=== PATIENT | female | born 1955 | race Caucasian/White ===

== ENCOUNTER 2019-12-20 13:53 | Outpatient (CLI) | payer MEDICARE, MEDICAID, SELFPAY ==
[2019-12-20 14:10] VITALS: BP 140/80; PULSE 109; RESP 18; TEMP 36.7; O2SAT 92
[2019-12-20] MEDS: diphenhydrAMINE 50 mg/mL SDV 1mL 25 MG IVP (15:16)
[2019-12-20 17:00] VITALS: BP 156/87; PULSE 102; TEMP 36.6; O2SAT 91
== END 2019-12-20 13:54 | disposition home or self-care (01) ==
LOC: RHEOACUTE 13:54
PROVIDERS: Family Provider Family Medicine; PCP Family Medicine; Visit Provider Internal Medicine Rheumatology
DX: L40.50 Arthropathic psoriasis, unspecified (principal); Z79.899 Other long term (current) drug therapy
CPT/HCPCS: 36415; 82565; 84460; 86140; 96365; 96366; 96374; 96375; J1200; J1745; J2930; J7050

== ENCOUNTER → 2019-12-20 14:18 | Outpatient (BNVA) | payer MEDICARE, MEDICAID, SELFPAY | PROVIDERS: Family Provider Family Medicine; PCP Family Medicine; Visit Provider Internal Medicine Rheumatology | DX: L40.50 Arthropathic psoriasis, unspecified (principal); E66.01 Morbid (severe) obesity due to excess calories | CPT/HCPCS: 85025 ==

== ENCOUNTER 2020-01-31 09:41 | Outpatient (CLI) | payer MEDICARE, MEDICAID, SELFPAY ==
--- NOTE | 2020-01-31 09:47 | CT_ITS ---
WS: [id number] CT CHEST WITHOUT INTRAVENOUS CONTRAST HISTORY: COUGH TECHNIQUE: Contiguous 5 mm axial imaging performed on the thorax. Coronal and sagittal reformats are submitted. All CT scans at [facility] use at least one of these dose optimization techniq ues: automated exposure control; mA and/or kV adjustment per patient size (includes targeted exams wh ere dose is matched to clinical indication); or iterative reconstruction. CONTRAST: None DLP: 1026.53 mGycm COMPARISON: 09/06/2015 Lungs and central airway: Mild pulmonary hyperexpansion. There are 2 noncalcified RIGHT pulmonary nod ules which are stable over multiple prior years. These are best seen on image 23 of series 3. The lar gest measures 6.4 mm in the inferior segment RIGHT upper lobe. Mild dependent changes at the RIGHT josé ng base. Pleura: Normal. No pleural effusion. Heart and pericardium: Normal size heart. Scattered calcifications in the [place] coronary arteries. Mediastinum and jose: No mediastinum or hilar adenopathy. Vessels: Mild atherosclerosis aorta. Chest wall and lower neck: No soft tissue masses. Upper abdomen: Hepatic steatosis and hepatomegaly. Cholelithiasis without acute cholecystitis. Osseous structures: No destructive process. CT/CT chest wo con [id number] IMPRESSION: 1. Long-term stability of subcentimeter, noncalcified pulmonary nodules in the RIGHT lung. 2. No adenopathy or pneumonia. 3. Cholelithiasis. 4. Marked hepatic steatosis. 5. Coronary artery calcifications and mild atherosclerosis aorta.
== END 2020-01-31 09:42 | disposition home or self-care (01) ==
LOC: RADWPI 09:46
PROVIDERS: Family Provider Family Medicine; PCP Family Medicine; Visit Provider Specialist
DX: K80.20 Calculus of gallbladder without cholecystitis without obstruction (principal); K76.0 Fatty (change of) liver, not elsewhere classified; I25.10 Atherosclerotic heart disease of native coronary artery without angina pectoris; I70.0 Atherosclerosis of aorta; R91.8 Other nonspecific abnormal finding of lung field; R05 Cough
CPT/HCPCS: 71250

== ENCOUNTER → 2020-05-09 09:40 | Outpatient (BNVA) | payer MEDICARE, MEDICAID, SELFPAY | PROVIDERS: Family Provider Family Medicine; PCP Family Medicine; Visit Provider Internal Medicine Rheumatology | DX: L40.50 Arthropathic psoriasis, unspecified (principal); Z79.899 Other long term (current) drug therapy; M17.0 Bilateral primary osteoarthritis of knee; E66.01 Morbid (severe) obesity due to excess calories; Z68.43 Body mass index [BMI] 50.0-59.9, adult | CPT/HCPCS: 36415; 80076; 82565; 85025; 85651; 86140; 99214 ==

== ENCOUNTER 2020-06-06 09:25 | Outpatient (CLI) | payer MEDICARE, MEDICAID, SELFPAY ==
--- NOTE | 2020-06-06 09:34 | XR_ITS ---
WS: [id number] RIGHT KNEE: 3 VIEW(S) TECHNIQUE: AP, oblique(s) and lateral. HISTORY: psoriatic arthritis COMPARISON: 09/20/2014 No fracture or dislocation. Mild narrowing medial compartment. Small osteophytes along the joint lines. No joint effusion. No joint effusion. No soft tissue abnormality. XR/XR knee RT 3V* [id number] IMPRESSION: Mild tricompartment osteoarthritis. Similar to 09/20/2014.
--- NOTE | 2020-06-06 09:34 | XR_ITS ---
WS: [id number] LEFT KNEE: 3 VIEW(S) TECHNIQUE: AP, oblique(s) and lateral. HISTORY: psoriatic arthritis COMPARISON: 09/20/2014 No fracture or dislocation. Mild narrowing medial compartment. Small osteophytes along the joint lines of all 3 compartments. No definite joint effusion. No joint effusion. No soft tissue abnormality. XR/XR knee LT 3V* [id number] IMPRESSION: Mild osteoarthritis. Mild progression since 2013.
--- NOTE | 2020-06-06 09:34 | XR_ITS ---
WS: [id number] RIGHT HAND: 3 VIEW(S) TECHNIQUE: PA, oblique and lateral. HISTORY: psoriatic arthritis COMPARISON: None available. No acute fracture or dislocation. Significant narrowing of the interphalangeal joints, most significant involving the second through fi fth DIP joints and to a lesser extent the proximal IP joints. Loss of cartilage and small erosions al vincent the joint lines. No subluxation. No significant periostitis. Minimal periostitis suspected along the medial aspect second proximal phalanx. XR/XR hand RT min 3V* [id number] IMPRESSION: 1. Changes in the interphalangeal joints can be seen with psoriatic arthritis. Mild progression since 08/25/2012. 2. No fractures.
--- NOTE | 2020-06-06 09:34 | XR_ITS ---
WS: [id number] LEFT HAND: 3 VIEW(S) TECHNIQUE: PA, oblique and lateral. HISTORY: psoriatic arthritis COMPARISON: 08/06/2016 No acute fracture or dislocation. Interphalangeal joint space narrowing most significant involving the DIP joints. Loss of joint space with hypertrophic bone formation and small erosions. No significant change at the third DIP joint. No definite periostitis. Minimal soft tissue edema. XR/XR hand LT min 3V* [id number] IMPRESSION: Erosive changes at the IP joints without periostitis. These findings can be see n with psoriatic arthritis.
--- NOTE | 2020-06-06 09:34 | XR_ITS ---
WS: [id number] CHEST 2 VIEWS HISTORY: psoriatic arthritis COMPARISON: None available. Lungs: Mildly hyperexpanded lungs. No pneumonia. Flattening of the diaphragms. Normal vasculature. Cardiac size: Normal. Mediastinum/Aorta: Mild atherosclerosis aorta. Bones: Increase in thoracic kyphosis. No bulky osteophytes identified. XR/XR chest 2V* [id number] IMPRESSION: 1. Partially calcified aorta. 2. No pneumonia.
--- NOTE | 2020-06-06 09:34 | XR_ITS ---
WS: [id number] RIGHT FOOT: 3 VIEW(S) TECHNIQUE: AP, oblique and lateral. HISTORY: psoriatic arthritis COMPARISON: None available. No acute fracture or dislocation. Normal tarsal/metatarsal alignment. Mild interphalangeal joint space narrowing. No erosions. No soft tissue abnormality or bone destruction. XR/XR foot RT min 3V* [id number] IMPRESSION: Changes of mild osteoarthritis.
== END 2020-06-06 09:26 | disposition home or self-care (01) ==
LOC: RADWPI 09:29
PROVIDERS: Family Provider Family Medicine; PCP Family Medicine; Visit Provider Internal Medicine Rheumatology
DX: L40.50 Arthropathic psoriasis, unspecified (principal); I70.0 Atherosclerosis of aorta; M19.071 Primary osteoarthritis, right ankle and foot; M17.0 Bilateral primary osteoarthritis of knee
CPT/HCPCS: 71046; 73130; 73562; 73630

== ENCOUNTER → 2020-09-10 10:52 | Outpatient (BNVA) | payer MEDICARE, MEDICAID, SELFPAY | PROVIDERS: Family Provider Family Medicine; PCP Family Medicine; Visit Provider Internal Medicine Rheumatology | DX: L40.50 Arthropathic psoriasis, unspecified (principal); Z79.899 Other long term (current) drug therapy; Z11.59 Encounter for screening for other viral diseases; Z11.1 Encounter for screening for respiratory tuberculosis; I10 Essential (primary) hypertension; M17.0 Bilateral primary osteoarthritis of knee; E66.01 Morbid (severe) obesity due to excess calories; Z87.891 Personal history of nicotine dependence; Z68.43 Body mass index [BMI] 50.0-59.9, adult | CPT/HCPCS: 36415; 80048; 80076; 85025; 85651; 86140; 86480; 86704; 86803; 87340; 87806; 99214 ==

== ENCOUNTER → 2021-01-16 09:47 | Outpatient (BNVA) | payer MEDICARE, MEDICAID, SELFPAY | PROVIDERS: Family Provider Family Medicine; PCP Family Medicine; Visit Provider Internal Medicine Rheumatology | DX: L40.50 Arthropathic psoriasis, unspecified (principal); Z79.899 Other long term (current) drug therapy; M17.0 Bilateral primary osteoarthritis of knee; G89.4 Chronic pain syndrome; E66.01 Morbid (severe) obesity due to excess calories; Z68.43 Body mass index [BMI] 50.0-59.9, adult; Z87.891 Personal history of nicotine dependence | CPT/HCPCS: 99214 ==

== ENCOUNTER → 2021-03-03 11:20 | Outpatient (BNVA) | payer MEDICARE, MEDICAID, SELFPAY | PROVIDERS: Family Provider Family Medicine; PCP Family Medicine; Visit Provider Family Medicine | DX: J41.0 Simple chronic bronchitis (principal); I10 Essential (primary) hypertension; G89.4 Chronic pain syndrome; R60.0 Localized edema; K21.9 Gastro-esophageal reflux disease without esophagitis; F51.01 Primary insomnia; Z13.220 Encounter for screening for lipoid disorders; Z13.6 Encounter for screening for cardiovascular disorders; L40.50 Arthropathic psoriasis, unspecified; Z79.899 Other long term (current) drug therapy; Z11.59 Encounter for screening for other viral diseases; F33.1 Major depressive disorder, recurrent, moderate | CPT/HCPCS: 80053; 80061; 80076; 82565; 85025; 86140 ==

== ENCOUNTER → 2021-06-25 12:52 | Outpatient (BNVA) | payer MEDICARE, MEDICAID, SELFPAY | PROVIDERS: Family Provider Family Medicine; PCP Family Medicine; Visit Provider Internal Medicine Rheumatology | DX: L40.50 Arthropathic psoriasis, unspecified (principal); Z79.899 Other long term (current) drug therapy; G89.4 Chronic pain syndrome; M17.0 Bilateral primary osteoarthritis of knee; E66.01 Morbid (severe) obesity due to excess calories; Z68.43 Body mass index [BMI] 50.0-59.9, adult; Z71.3 Dietary counseling and surveillance; Z71.89 Other specified counseling; Z87.891 Personal history of nicotine dependence | CPT/HCPCS: 99214 ==

== ENCOUNTER → 2021-07-22 11:43 | Outpatient (BNVA) | payer MEDICARE, MEDICAID, SELFPAY | PROVIDERS: Family Provider Family Medicine; PCP Family Medicine; Visit Provider Internal Medicine Rheumatology | DX: L40.50 Arthropathic psoriasis, unspecified (principal); Z79.899 Other long term (current) drug therapy; M19.90 Unspecified osteoarthritis, unspecified site | CPT/HCPCS: 80076; 82565; 85025; 86140 ==

== ENCOUNTER → 2021-10-20 13:23 | Outpatient (BNVA) | payer MEDICARE, MEDICAID, SELFPAY | PROVIDERS: Family Provider Family Medicine; PCP Family Medicine; Visit Provider Internal Medicine Rheumatology | DX: L40.50 Arthropathic psoriasis, unspecified (principal); Z79.899 Other long term (current) drug therapy; B02.9 Zoster without complications; M17.0 Bilateral primary osteoarthritis of knee; E66.01 Morbid (severe) obesity due to excess calories; Z68.43 Body mass index [BMI] 50.0-59.9, adult; Z71.89 Other specified counseling; Z87.891 Personal history of nicotine dependence | CPT/HCPCS: 99214 ==

== ENCOUNTER 2021-11-09 11:38 | Observation (INO) | payer MEDICARE, MEDICAID, SELFPAY ==
[2021-11-09] VITALS (11 sets, daily range): BP systolic 107–145; BP diastolic 49–72; PULSE 19–102; RESP 15–90; TEMP 36.7–36.8; O2SAT 92–100; BMI 63.1
--- NOTE | 2021-11-09 11:41 | W.ED.CHESTPA ---
HPI - Chest Pain General: Chief Complaint: Chest Pain Stated Complaint: CHEST PAIN Time Seen by Provider: 11/09/21 11:38 History of Present Illness: HPI narrative: Ms. Mariscal is a 66-year-old lady with complex past medical history including hypertension, hyperlipidemia, chronic hypoxic respiratory failure with intermittent home oxygen use, MARGARETH on CPAP, COPD, CAD, carotid bruit who presents to the emergency department due to chest pain. She reports being at her baseline health though perhaps more fatigued earlier today. She went outside walking her dogs and had onset of squeezing chest pressure in the middle of her chest. Moderate intensity. Mild radiation to the left arm. Mild associated shortness of breath. No other typical cardiac features. Denies history of frequent chest pain. Symptoms have now improved with multiple doses of nitroglycerin. Questionable loss of consciousness reported though patient does not specifically recall. No other specific changes to health, infectious symptoms, exacerbating, or alleviating factors identified. Review of Systems General: Reports: 10 or more systems reviewed and unremarkable except in HPI and below PFSH ED PFSH: Medical History (Updated 11/11/21 @ 00:00 by ) Aortic stenosis Aortic valve sclerosis Benign essential hypertension with target blood pressure below 140/90 BiPAP (biphasic positive airway pressure) dependence CAD (coronary atherosclerotic disease) Carotid bruit CHF (congestive heart failure) Chronic pain syndrome Chronic respiratory failure COPD (chronic obstructive pulmonary disease) De Quervain's tenosynovitis, right Depression Emphysema of lung Generalized osteoarthritis of multiple sites GERD (gastroesophageal reflux disease) Mother has pancreatic cancer. Herpes zoster has been treating with pcp for 6 weeks High risk medication use History of abdominal hernia Immunization counseling Insomnia Leg edema Morbid obesity Morbid obesity Morbid obesity with body mass index (BMI) greater than or equal to 50 MARGARETH (obstructive sleep apnea) Osteoarthritis of both knees Overactive bladder Peripheral edema Psoriasis Psoriatic arthritis SOB (shortness of breath) Patient apparently had a cardiac catheterization and myocardial perfusion imaging in the past which were unremarkable Surgical History (Updated 11/09/21 @ 16:59 by Denver Oliva MD) History of History of esophagogastroduodenoscopy (EGD) History of hysterectomy History of surgery on wrist Hx of umbilical hernia repair Status post tonsillectomy Family History Father Diabetes Mother CAD (coronary artery disease) Hyperlipidemia Hypertension Cancer History of heart attack Diabetes Sister Chronic kidney disease (CKD) Dementia Diabetes Stroke Denies family history of Clotting disorder Suicide Anesthesia complication Bleeding disorder Lung disease Social History Second hand smoke exposure: No Smoking risk assessment/counseling performed?: No Alcohol intake: never Desire information about alcohol rehabilitation?: No Counseling given: No Desire information about substance/drug rehabilitation?: No Counseling given: No Adopted: No Caregiver/support person: No Lives independently: Yes Household members: family Housing: House Marital status: / Number of children: 3 Highest education level completed: High School Graduate service: No Current occupational status: disabled Current occupational exposures/hazards: No Pets and animals: Yes Pets & animals: dog(s) History of recent travel: No Sexually active: No Current gender identity: Female Sho/Christianity: Other Special sho needs: No Agree to transfusion: No Financial difficulty paying for basics: Not Very Hard Female Reproductive History: Para: 3 Spontaneous abortions: No Physical Exam Narrative: EXAM NARRATIVE: GENERAL/CONSTITUTIONAL -somewhat ill-appearing. Obese Eyes - PERRL, no conjunctival injection ENMT - Atraumatic external nose and ears. Moist mucous membranes NECK - supple. trachea midline CARDIOVASCULAR - regular rate and rhythm. 1-2+ bilateral edema. RESPIRATORY -diminished to auscultation bilaterally. Mild tachypnea ABDOMEN/GI - Nontender/Nondistended. No tenderness to percussion or evidence of peritonitis MSK - Extremities without obvious deformity or tenderness to palpation SKIN - Warm, Dry NEURO - alert and appropriately oriented. No focal neurologic deficits. Moves all extremities equally. Course ED course: - Patient was seen and evaluated by me at bedside - Patient placed on cardiac monitors, IV access obtained - Initial evaluation notable for exam as above, somewhat ill, worsening oxygen requirement at 6 L. - Symptom treatment ordered - Labs notable for leukocytosis. No significant electrolyte derangement. Delta troponin is negative. D-dimer elevated. PCO2 is notably elevated on ABG with unclear baseline, pH is however compensated. - Imaging notable for cardiomegaly with pulmonary vascular congestion and nonspecific basilar opacities. CT abdomen was obtained and warranted given patient's possible loss of consciousness/syncopal type episode as described in HPI. Negative for acute intracranial hemorrhage or mass, given normal neurologic exam I do not feel that pursuing vascular head and neck imaging is warranted at this time. Given D-dimer which was warranted under Wells/PERC combination a CTA was ordered. This is negative for pulmonary embolism. Unclear source of infiltrate remains. - Given clinical history as well as physical exam in the context of underlying lung disease antibiotics in addition to his COPD exacerbation treatment ordered. - Upon serial reexamination after treatment the patient was minimally improved - Based on patient history, evaluation, labs, and imaging as interpreted the most likely cause of the patient's condition is likely multifactorial. Given physical exam the patient likely has a component of volume overload as reflected by chest x-ray, additionally underlying pneumonia and COPD exacerbation also likely play a role. - The results of ED evaluation were discussed with the patient including plan for admission due to worsened oxygen requirement in the context of multifactorial worsening respiratory status and requirement for level of care not available if discharged to prevent significant worsening/deterioration. - Hospitalist service contacted and agreed admit the patient. - Patient was admitted without further deterioration or significant events. Vital Signs: Vital signs: Vital Signs Temperature 98.2 F 11/10/21 15:43 Pulse Rate 108 H 11/10/21 15:43 Respiratory Rate 18 11/10/21 15:43 Blood Pressure 129/72 11/10/21 15:43 Pulse Oximetry 91 11/10/21 15:43 MDM - Chest Pain MDM Narrative: Medical decision making narrative: Patient presents with chest pain and worsening oxygen requirement. Comorbid a baseline. Based on ED evaluation likely multifactorial including fluid overload, COPD exacerbation, and pneumonia. Requires inpatient admission as described. Medical Records: Attestation: I reviewed the patient's medical records. Lab Data: Attestation: I reviewed the patient's lab results. Labs: Lab Results 11/09/21 11/09/21 11/09/21 12:13 12:17 12:17 WBC 12.1 10^3/uL H 10 ^3/uL (4.0-10.0) RBC 5.07 10^6/uL 10^6 /uL (4.1-5.3) Hgb 14.4 g/dL g/dL (11.5-15.3) Hct 49.1 % H % (37.0-47.0) MCV 96.8 fl fl (81-99) MCH 28.4 pg pg (28.0-34.0) MCHC 29.3 g/dL L g/dL (30.0-36.0) RDW 16.8 % H % (12.1-15.1) Plt Count 225 10^3/cmm 10^3 /cmm (130-400) MPV 10.5 fL H fL (7.4-10.4) Neut % (Auto) 85.6 % % Lymph % (Auto) 6.5 % % [place] % (Auto) 6.6 % % Eos % (Auto) 0.4 % % Baso % (Auto) 0.5 % % Neut # (Auto) 10.34 10^3/uL H 1 0^3/uL (1.8-7.7) Lymph # (Auto) 0.8 10^3/uL 10^3/ uL (0.8-4.8) [place] # (Auto) 0.8 10^3/uL 10^3/ uL (0.2-0.9) Eos # (Auto) 0.1 10^3/uL 10^3/ uL (0.0-0.8) Baso # (Auto) 0.1 10^3/uL 10^3/ uL (0.0-0.1) Nucleated RBC % (a uto) 0 % % Nucleated RBCs # 0.0 /100WBC /100W BC D-Dimer Specimen Type Arterial Sample Site Radial, left ABG pH 7.36 (7.35-7.45) ABG pCO2 55.1 mmHg H mmHg (35-45) ABG pO2 206.0 mmHg H mmHg (80.0-100.0) ABG HCO3 31.0 mmol/L H mmo l/L (22-26) ABG Base Excess 4.2 mmol/L H mmol /L (-2.0-2.0) Marty Test Pos Hematocrit 38.0 % % (37-47) O2 Delivery Device Nrb O2 Liters/Min 12.0 % % Ton Container Shipper ID Ed Sodium 141 mmol/L mmol/L (136-145) Potassium 3.9 mmol/L mmol/L (3.5-5.1) Chloride 101 mmol/L mmol/L (98-107) Carbon Dioxide 26 mmol/L mmol/L (22-29) Anion Gap 17.9 (5-19) BUN 12 mg/dL mg/dL (8-23) Creatinine 0.5 mg/dL mg/dL (0.5-0.9) GFR Calculation 124.2 mL/min mL/m in (90-130) Glucose 141 mg/dL H mg/dL (65-115) Calculated Osmolal ity 294 mOsm/kg mOsm/ kg (285-295) Calcium 8.1 mg/dL L mg/dL (8.5-10.5) Iron TIBC % Saturation Unsat Iron Binding Total Bilirubin 0.3 mg/dL mg/dL (0.15-1.2) AST 21 U/L U/L (0-32) ALT 17 U/L U/L (0-33) Alkaline Phosphata se 96 IU/L IU/L (35-105) Troponin T Baselin e Troponin T 120 Min [place] Delta Troponin T C-Reactive Protein NT-Pro-B Natriuret Pep 74 pg/mL pg/mL (0-125) Total Protein 6.6 g/dL g/dL (6.6-8.7) Albumin 3.4 g/dL L g/dL (3.5-5.2) Globulin 3.2 g/dL g/dL (1.3-4.6) Procalcitonin TSH 11/09/21 11/09/21 11/09/21 12:17 13:02 13:17 WBC RBC Hgb Hct MCV MCH MCHC RDW Plt Count MPV Neut % (Auto) Lymph % (Auto) [place] % (Auto) Eos % (Auto) Baso % (Auto) Neut # (Auto) Lymph # (Auto) [place] # (Auto) Eos # (Auto) Baso # (Auto) Nucleated RBC % (a uto) Nucleated RBCs # D-Dimer 3.68 ug/mIFEU H u g/mIFEU (0-0.59) Specimen Type Sample Site ABG pH ABG pCO2 ABG pO2 ABG HCO3 ABG Base Excess Marty Test Hematocrit O2 Delivery Device O2 Liters/Min Ton Container Shipper ID Sodium Potassium Chloride Carbon Dioxide Anion Gap BUN Creatinine GFR Calculation Glucose Calculated Osmolal ity Calcium Iron 37 ug/dL ug/dL (37-145) TIBC 390 mcg/dl mcg/dl % Saturation 9.4 % L % (20-50) Unsat Iron Binding 353 ug/dL H ug/dL (112-347) Total Bilirubin AST ALT Alkaline Phosphata se Troponin T Baselin e 9 ng/L ng/L (0-10) Troponin T 120 Min [place] Delta Troponin T C-Reactive Protein 28.2 mg/L H mg/L (0.0-4.9) NT-Pro-B Natriuret Pep Total Protein Albumin Globulin Procalcitonin 0.06 ng/mL ng/mL (0-0.5) TSH 3.14 uIU/mL uIU/m L (0.27-4.20) 11/09/21 14:27 WBC RBC Hgb Hct MCV MCH MCHC RDW Plt Count MPV Neut % (Auto) Lymph % (Auto) [place] % (Auto) Eos % (Auto) Baso % (Auto) Neut # (Auto) Lymph # (Auto) [place] # (Auto) Eos # (Auto) Baso # (Auto) Nucleated RBC % (a uto) Nucleated RBCs # D-Dimer Specimen Type Sample Site ABG pH ABG pCO2 ABG pO2 ABG HCO3 ABG Base Excess Marty Test Hematocrit O2 Delivery Device O2 Liters/Min Ton Container Shipper ID Sodium Potassium Chloride Carbon Dioxide Anion Gap BUN Creatinine GFR Calculation Glucose Calculated Osmolal ity Calcium Iron TIBC % Saturation Unsat Iron Binding Total Bilirubin AST ALT Alkaline Phosphata se Troponin T Baselin e Troponin T 120 Min [place] 8.97 ng/L ng/L (0-10) Delta Troponin T -0.03 ABS# L ABS# (0-10) C-Reactive Protein NT-Pro-B Natriuret Pep Total Protein Albumin Globulin Procalcitonin TSH EKG Data^: EKG 1: Attestation: I personally reviewed and interpreted this EKG as follows: EKG interpretation date: 11/09/21 EKG interpretation time: 11:58 Interpretation: Twelve-lead EKG shows a regular rhythm at a rate of 78. AK interval 204. QRS duration 99. QTc 436. Regular [place].. Interpretation: Sinus rhythm. First-degree AV block. EKG 2: Attestation: I personally reviewed and interpreted this EKG as follows: EKG interpretation date: 11/09/21 EKG interpretation time: 14:46 Interpretation: Twelve-lead EKG shows a regular rhythm at a rate of 82. AK interval 201. QRS duration 101. QTc 418. Regular [place].. Interpretation: Sinus rhythm. First-degree AV block. EKG 3: Attestation: I personally reviewed and interpreted this EKG as follows: EKG interpretation date: 11/09/21 EKG interpretation time: 17:49 Interpretation: Twelve-lead EKG shows a regular rhythm at a rate of 87. AK interval 192. QRS duration 106. QTc 426. Normal [place].. Interpretation: Sinus rhythm. Discharge Plan Discharge Patient Disposition: Placed in Observation Admit Provider: Denver Oliva Discharge Diet: Cardiac Discharge Activity: Increase activity as tolerated, Oxygen as instructed and Cpap/Bipap as instructed Coding Level of Care Code ED International Trade Specialist for Daniella Epperson
--- NOTE | 2021-11-09 11:58 | CTR_ITS ---
PROCEDURE INFORMATION: Exam: CT Head Without Contrast Exam date and time: 11/09/2021 11:58 AM Age: 66 years old Clinical indication: Dizziness; Additional info: Loc TECHNIQUE: Imaging protocol: Computed tomography of the head without contrast. Total images: 204 Radiation optimization: All CT scans at this facility use at least one of these dose optimization techniques: automated exposure control; mA and/or kV adjustment per patient size (includes targeted exams where dose is matched to clinical indication); or iterative reconstruction. COMPARISON: No relevant prior studies available. RADIATION DOSE METRICS: Total DLP (mGy-cm): 1057.81 FINDINGS: Brain: Global brain atrophy and chronic white matter ischemic changes are present. Chronic lacunar infarction in the right basal ganglia. Cerebral ventricles: Ventricles are appropriate in size for degree of atrophy. Paranasal sinuses: Visualized sinuses are unremarkable. No fluid levels. Mastoid air cells: Visualized mastoid air cells are well aerated. Orbital cavity: Prior bilateral lens replacements noted. Bones/joints: Unremarkable. No acute fracture. Soft tissues: Small lipoma/dermoid along the left frontal bone. CT/CT head wo con* [id number] IMPRESSION: No acute intracranial abnormality.
--- NOTE | 2021-11-09 11:58 | XRR_ITS ---
PROCEDURE INFORMATION: Exam: XR Chest Exam date and time: 11/09/2021 11:58 AM Age: 66 years old Clinical indication: Shortness of breath; Additional info: SOB, chest pain TECHNIQUE: Imaging protocol: XR of the chest. Views: 1 view. Total images: 1 COMPARISON: CR XR chest 2V* [id number] 06/06/2020 9:48 AM FINDINGS: Lungs: Pulmonary vascular congestion. Nonspecific bibasilar opacities, atelectasis, edema and/or pneumonia. Pleural spaces: Unremarkable. No pleural effusion. No pneumothorax. Heart/Mediastinum: Cardiomegaly. Vasculature: Atherosclerosis is evident. Bones/joints: Osseous structures are unchanged from the prior exam. XR/XR chest 1V portable [id number] IMPRESSION: 1. Cardiomegaly with pulmonary vascular congestion. 2. Nonspecific bibasilar opacities, atelectasis, edema and/or pneumonia.
--- NOTE | 2021-11-09 11:59 | ECG_ITS ---
[facility] Test Date: 2021-11-09 Pat Name: Dexter Mariscal Department: Room: Gender: Female Proof Clerk: : 1955 Requested By: Mario Stephens Order Number: [id number] Jimmy MD: Kieran Sarah M.D. Measurements Intervals [place] Rate: 78 P: 62 OK: 204 QRS: 27 QRSD: 99 T: 58 QT: 403 QTc: 459 Interpretive Statements SINUS RHYTHM LOW QRS VOLTAGE IN PRECORDIAL LEADS [QRS DEFLECTION < 1.0 mV IN CHEST LEADS] No previous ECG available for comparison Electronically Signed On 11-09-2021 20:20:56 PRINCIPAL STRATEGIST by Kieran Sarah M.D. [id number]
[2021-11-09 12:23] LABS: ABG PCO2 55.1 mmHg (35-45); ABG PH Result 7.36 (7.35-7.45); Base Excess ABG 4.2 mmol/L (-2.0-2.0); Blood Gas Allen Test Pos; Blood Gas Sample Type Arterial
[2021-11-09 12:24] LABS: Blood Gas Operator Identificat ED; Blood Gas Sample Site Radial, left; Oxygen Device NRB
[2021-11-09 12:30] LABS: Basophils # 0.1 10^3/uL (0.0-0.1); Basophils % 0.5 %; Eosinophils # 0.1 10^3/uL (0.0-0.8); Eosinophils % 0.4 %; Hematocrit 49.1 % (37.0-47.0); Hemoglobin 14.4 g/dL (11.5-15.3); Lymphocytes # 0.8 10^3/uL (0.8-4.8); Lymphocytes % 6.5 %; Mean Corpuscular HGB Conc 29.3 g/dL (30.0-36.0); Mean Corpuscular Hemoglobin 28.4 pg (28.0-34.0); Mean Corpuscular Volume 96.8 fl (81-99); Mean Platelet Volume 10.5 fL (7.4-10.4); Monocytes # 0.8 10^3/uL (0.2-0.9); Monocytes % 6.6 %; Neutrophils # 10.34 10^3/uL (1.8-7.7); Neutrophils % 85.6 %; Nucleated Red Blood Cells % 0 %; Platelet Count 225 10^3/cmm (130-400); Red Blood Count 5.07 10^6/uL (4.1-5.3); Red Cell Distribution Width 16.8 % (12.1-15.1); White Blood Count 12.1 10^3/uL (4.0-10.0)
[2021-11-09 12:52] LABS: Troponin(5th) Baseline 9 ng/L (0-10)
[2021-11-09 12:57] LABS: Alanine Aminotransferase 17 U/L (0-33); Albumin Level 3.4 g/dL (3.5-5.2); Alkaline Phosphatase 96 IU/L (35-105); Blood Urea Nitrogen 12 mg/dL (8-23); Calcium 8.1 mg/dL (8.5-10.5); Carbon Dioxide 26 mmol/L (22-29); Chloride 101 mmol/L (98-107); Globulin 3.2 g/dL (1.3-4.6); Glomerular Filtration Rate 124.2 mL/min (90-130); Glucose 141 mg/dL (65-115); NT Pro B Type Natriuretic Pept 74 pg/mL (0-125); Osmolality Calculated 294 mOsm/kg (285-295); Sodium 141 mmol/L (136-145); Total Bilirubin 0.3 mg/dL (0.15-1.2); Total Protein 6.6 g/dL (6.6-8.7)
[2021-11-09 13:04] LABS: Anion Gap 17.9 (5-19); Aspartate Amino Transferase 21 U/L (0-32); Potassium 3.9 mmol/L (3.5-5.1)
--- NOTE | 2021-11-09 13:59 | ECG_ITS ---
[facility] Test Date: 2021-11-09 Pat Name: Dexter Mariscal Department: Room: Gender: Female Office Clerk: : 1955 Requested By: Mario Stephens Order Number: [id number] Jimmy MD: Kieran Sarah M.D. Measurements Intervals [place] Rate: 82 P: 43 NC: 201 QRS: 20 QRSD: 101 T: 61 QT: 379 QTc: 444 Interpretive Statements SINUS RHYTHM LOW QRS VOLTAGE IN PRECORDIAL LEADS [QRS DEFLECTION < 1.0 mV IN CHEST LEADS] NONSPECIFIC T-WAVE ABNORMALITY Compared to ECG 11/09/2021 11:56:51 T-wave abnormality now present Electronically Signed On 11-09-2021 20:22:34 CHANGE MANAGER by Kieran Sarah M.D. [id number]
[2021-11-09 14:04] LABS: D Dimer 3.68 ug/mIFEU (0-0.59)
--- NOTE | 2021-11-09 14:07 | CTR_ITS ---
PROCEDURE INFORMATION: Exam: CTA Chest With Contrast Exam date and time: 11/09/2021 2:07 PM Age: 66 years old Clinical indication: Other: D dimer elevated, worse o2 req, chest pain TECHNIQUE: Imaging protocol: Computed tomographic angiography of the chest with contrast. 3D rendering (Not supervised by radiologist): MIP and/or 3D reconstructed images were created by the technologist. Radiation optimization: All CT scans at this facility use at least one of these dose optimization techniques: automated exposure control; mA and/or kV adjustment per patient size (includes targeted exams where dose is matched to clinical indication); or iterative reconstruction. Contrast material: OMNI 350; Contrast volume: 80 ml; Contrast route: INTRAVENOUS (IV); COMPARISON: CTA Chest-Pulmonary Emb [id number] 09/06/2015 11:07 AM RADIATION DOSE METRICS: Total DLP (mGy-cm): 571.33 FINDINGS: Pulmonary arteries: No pulmonary emboli. Aorta: No aortic aneurysm. No aortic dissection. Lungs: Minimal peripheral opacities consistent with atelectasis or inflammation. Stable 6 mm right upper lobe nodule (series 3, image 31). No new nodules. Pleural spaces: Unremarkable. No pneumothorax. No pleural effusion. Heart: No cardiomegaly. No pericardial effusion. Lymph nodes: No significant adenopathy. Gallbladder and bile ducts: Cholelithiasis. Bones/joints: No acute findings. Soft tissues: Unremarkable. CT/CT angio chest PE protcl [id number] IMPRESSION: No pulmonary embolism, minimal bilateral atelectasis versus pneumonia.
[2021-11-09] MEDS: iohexol 350 mg/mL 100 mL Btl IV (14:47)
[2021-11-09 15:41] LABS: Troponin 5 2HR 8.97 ng/L (0-10)
[2021-11-09 15:58] LABS: Troponin 5 2HR Delta -0.03 ABS# (0-10)
[2021-11-09] MEDS: cefTRIAXone 1,000 MG in sodium chloride 0.9% (plus) 50 ML 100 MG IV (16:16)
[2021-11-09] MEDS: doxycycline 100 MG in sodium chloride 0.9% (plus) 100 ML IV (16:49)
[2021-11-09] MEDS: ipratropium-albuterol 3 mL Neb INHALATION ×2 (16:56→21:12)
--- NOTE | 2021-11-09 16:56 | P.HP_ITS ---
Providers/Chief Complaint Primary Care Provider: Martha Pace MD Chief Complaint: CHEST PAIN History of Present Illness Dexter Mariscal is a 66 year old female with PMH of CAD, morbid obesity, aortic valve sclerosis, MARGARETH on bipap and COPD on 2 L. She presented to ER with c/o central retrosternal chest tightness and heaviness along with SOB which started today morning after she went outside to walk her dog. Symptoms were preceded by cold and chills. Denies any N/V, headache, dizziness. In ER found to be hypoxic needing 6 L of O2 to maintain over 94%. Vaccinated for covid with 2 shots. Review of Systems General: Reports: 10 or more systems reviewed and unremarkable except in HPI and below Const: Denies: fever(s), chills, body aches, change in appetite, change in we ight, malaise, night sweats, diaphoresis, change in sleep pattern, daytime sleepiness or snoring Eyes: Denies: change in vision, blurry vision, photophobia, eye discomfort or eye discharge ENMT: Denies: throat pain, enlarged tonsils, hoarseness, mouth pain, oral sores, dry mouth, tinnitus, nasal congestion or post nasal drip Card: Denies: chest pain, palpitations, irregular heart rhythm, edema, swelling of feet/ankles, lightheadedness, syncope, pre-syncope, dyspnea on exertion, orthopnea, leg pain with exertion or acrocyanosis Resp: Denies: dyspnea, productive cough, non-productive cough, wheezing, stridor, pain on inspiration, change in phlegm color, hemoptysis or chest congestion GI: Denies: abdominal pain, nausea, vomiting, hematemesis, coffee ground emesis, dysphagia, heartburn, diarrhea, constipation, bloating, GI cramping, change in bowel habits, pain on defecation, hematochezia or melena : Denies: flank pain, dysuria, urinary frequency, urinary urgency, urinary hesitancy, nocturia or hematuria Musc: Denies: neck pain, back pain, extremity pain, joint pain, joint swelling, joint redness, joint stiffness or limited range of motion Neuro: Denies: headache(s), numbness in extremities, weakness in extremities, sensory changes, lack of coordination, difficulty walking, frequent falls, dizziness, vertigo, confusion, Slurred speech present, difficulty communicating thoughts or seizure-like activity Psych: Denies: anxiety, depression, mood swings, panic attacks, hopelessness or irritability Endo: Denies: polyuria, polydipsia, tired all the time, cold intolerance, excessive sweating, flushing or heat intolerance Rene/Lymph: Denies: easy bruising or easy bleeding All/Imm: Denies: tongue swelling, facial swelling or acute wheezing Medications/Allergies Home Medications Medication Instructions Recorded Confirmed Last Taken Type nitroglycerin 0.4 mg sublingual 0.4 mg SUBLINGUAL Q5M PRN 11/13/19 11/09/21 11/09/21 History tablet triamcinolone acetonide 0.025 % 1 applic TOPICAL BID 11/13/19 11/09/21 Unknown History topical cream amitriptyline 100 mg tablet 100 mg PO BEDTIME tab 09/03/20 11/09/21 11/09/21 History folic acid 1 mg tablet 1 mg PO DAILY #90 tab 09/10/20 11/09/21 11/08/21 Rx prednisone 10 mg tablet See Rx Instructions PO .COMPLEX 06/25/21 11/09/21 Unknown Rx PRN #30 tab albuterol sulfate 90 mcg/actuation 2 puff INHALATION Q6H PRN #8.5 g 10/01/21 11/09/21 Unknown Rx aerosol inhaler amlodipine 10 mg tablet 10 mg PO DAILY 90 Days #90 tab 10/01/21 11/09/21 11/08/21 Rx duloxetine 20 mg capsule,delayed 20 mg PO DAILY 90 Days #90 cap 10/01/21 11/09/21 11/08/21 Rx release fluticasone 250 mcg-salmeterol 50 1 inh INHALATION BID 30 Days #60 ea 10/01/21 11/09/21 11/08/21 Rx mcg/dose blistr powdr for inhalation furosemide 40 mg tablet 40 mg PO BID 90 Days #180 tab 10/01/21 11/09/21 11/08/21 Rx gabapentin 300 mg capsule See Rx Instructions .ROUTE 10/01/21 11/09/21 11/08/21 Rx .COMPLEX #60 cap ibuprofen 800 mg tablet 800 mg PO Q8H PRN #60 tab 10/01/21 11/09/21 Unknown Rx losartan 100 mg tablet 100 mg PO DAILY 90 Days #90 tab 10/01/21 11/09/21 11/08/21 Rx metoprolol succinate 25 mg See Rx Instructions .ROUTE 10/01/21 11/09/21 11/08/21 Rx tablet,extended release 24 hr .COMPLEX #60 tab pantoprazole 40 mg tablet,delayed 40 mg PO BID 90 Days #180 tab 10/01/21 11/09/21 11/08/21 Rx release potassium chloride 10 mEq 10 meq PO BID 90 Days #180 cap 10/01/21 11/09/21 11/08/21 Rx capsule,extended release methotrexate sodium (PF) 25 mg/mL 20 mg IM .Q7days #10 ml 10/20/21 11/09/21 Unknown Rx injection solution tofacitinib 5 mg tablet 5 mg PO BID #60 tab 10/20/21 11/09/21 11/08/21 Rx Ambien 5 mg PO BEDTIME PRN 11/09/21 11/09/21 11/08/21 History Allergies Allergy/AdvReac Type Severity Reaction Status Date / Time ixekizumab Allergy Intermediate skin Verified 11/09/21 11:48 [From Taltz Autoinjector] reaction at inj site ibuprofen Allergy Unknown unknown Verified 11/09/21 11:48 omeprazole [From Prilosec] Allergy Unknown unknown Verified 11/09/21 11:48 etanercept [From Enbrel] Allergy ALGY-Hives Verified 11/09/21 11:48 lisinopril Allergy ALGY-Hives Verified 11/09/21 11:48 Penicillins Allergy Unknown Verified 11/09/21 11:48 Sulfa (Sulfonamide Allergy ALGY-Hives Verified 11/09/21 11:48 Antibiotics) PFSH Acute PFSH: Medical History (Updated 11/09/21 @ 16:59 by Denver Oliva MD) Aortic stenosis Aortic valve sclerosis Benign essential hypertension with target blood pressure below 140/90 BiPAP (biphasic positive airway pressure) dependence CAD (coronary atherosclerotic disease) Carotid bruit CHF (congestive heart failure) Chronic pain syndrome Chronic respiratory failure COPD (chronic obstructive pulmonary disease) De Quervain's tenosynovitis, right Depression Emphysema of lung Generalized osteoarthritis of multiple sites GERD (gastroesophageal reflux disease) Mother has pancreatic cancer. Herpes zoster has been treating with pcp for 6 weeks High risk medication use History of abdominal hernia Immunization counseling Insomnia Leg edema Morbid obesity Morbid obesity Morbid obesity with body mass index (BMI) greater than or equal to 50 MARGARETH (obstructive sleep apnea) Osteoarthritis of both knees Overactive bladder Peripheral edema Psoriasis Psoriatic arthritis SOB (shortness of breath) Patient apparently had a cardiac catheterization and myocardial perfusion imaging in the past which were unremarkable Surgical History (Updated 11/09/21 @ 16:59 by Denver Oliva MD) History of History of esophagogastroduodenoscopy (EGD) History of hysterectomy History of surgery on wrist Hx of umbilical hernia repair Status post tonsillectomy Family History Father Diabetes Mother CAD (coronary artery disease) Hyperlipidemia Hypertension Cancer History of heart attack Diabetes Sister Chronic kidney disease (CKD) Dementia Diabetes Stroke Denies family history of Clotting disorder Suicide Anesthesia complication Bleeding disorder Lung disease Social History Second hand smoke exposure: No Smoking risk assessment/counseling performed?: No Alcohol intake: never Desire information about alcohol rehabilitation?: No Counseling given: No Desire information about substance/drug rehabilitation?: No Counseling given: No Adopted: No Caregiver/support person: No Lives independently: Yes Household members: family Housing: House Marital status: / Number of children: 3 Highest education level completed: High School Graduate service: No Current occupational status: disabled Current occupational exposures/hazards: No Pets and animals: Yes Pets & animals: dog(s) History of recent travel: No Sexually active: No Current gender identity: Female Sho/Sikhism: Other Special sho needs: No Agree to transfusion: No Financial difficulty paying for basics: Not Very Hard Female Reproductive History: Para: 3 Spontaneous abortions: No Vitals/I&O/Wt Last Vital Signs Temp 98.2 F 11/09/21 11:40 Pulse 70 11/09/21 15:42 Resp 20 H 11/09/21 15:42 BP 107/59 11/09/21 15:42 Pulse Ox 94 11/09/21 15:42 11/09/21 11/09/21 11/09/21 06:59 14:59 22:59 Intake Total 50 / 50 Balance 50 / 50 Weight last 48 hrs Weight 171.912 kg Physical Exam Narrative: EXAM NARRATIVE: General: No acute distress, AO x3, morbidly obese, on NC HEENT: PERRLA, pupils bilaterally equal and reactive Chest: Normal vesicular breath sounds, b/l expiratory wheeze present, equal good air entry bilaterally CVS: S1-S2 regular, no murmurs, no tachycardia, no gallops, no rubs Abdomen: Soft, nontender, no organomegaly, bowel sounds present Neuro: No focal deficits, no facial deformity, AO x3, power 5/5 in all limbs Data : 11/09/21 12:17 11/09/21 12:17 A&P Assessment and plan (1) Hypoxia: Status: Acute (2) COPD (chronic obstructive pulmonary disease): Status: Acute Qualifiers: COPD type: chronic bronchitis Chronic bronchitis type: simple Qualified Code(s): J41.0 - Simple chronic bronchitis (3) MARGARETH (obstructive sleep apnea): Status: Acute (4) Chronic respiratory failure: Status: Acute Qualifiers: Respiratory failure complication: hypoxia and hypercapnia Qualified Code(s): J96.11 - Chronic respiratory failure with hypoxia; J96.12 - Chronic respiratory failure with hypercapnia (5) Chest pain: Status: Acute (6) Benign essential hypertension with target blood pressure below 140/90: Status: Acute (7) Morbid obesity with body mass index (BMI) greater than or equal to 50: Status: Acute (8) CAD (coronary atherosclerotic disease): Status: Acute Qualifiers: Associated angina: without angina Coronary Disease-Associated Artery/Lesion type: [place] artery [place] vs. transplanted heart: [place] heart Qualified Code(s): I25.10 - Atherosclerotic heart disease of [place] coronary artery without angina pectoris Additional A&P Information Hypoxia: 2/2 COPD exacerbation less likely 2/2 PNA: Symptoms started after walking in cold weather. CTA done in ER negative for PE. Probnp normal Check sputum Cx, Bcx, procal, Covid PCR, flu swab. Duoneb Q6h, budesonide BID. Solumedrol 40 Q6h Start on Azithro and ceftriaxone for CAP. Will de-escalate in next 24 hrs if afebrile. O2 supplementation keeping over 88% Bipap QHS ECHO. C/w home dose of lasix Continue other chronic meds. Will change treatment as per clinical picture and results of tests. Code status: Ok with chest compressions. No ventilation. Limited resuscitation Pepcid for PUD Lovenix for DVT Attestations Medical Necessity Statement*: Admit for more than 2 MN for hypoxia, copd, pna Time Spent in Patient Care: Greater than 35 minutes (>than 50% of time spent in counselling and/or direct pt care on unit) . Coding Level of Care Code Acute Director [employer] for g Fwd Diagnoses Hypoxia R09.02 COPD (chronic obstructive pulmonary disease) J41.0 COPD type: chronic bronchitis Chronic bronchitis type: simple MARGARETH (obstructive sleep apnea) G47.33 Chronic respiratory failure J96.11; J96.12 Respiratory failure complication: hypoxia and hypercapnia Chest pain R07.9 Benign essential hypertension with target blood pressure below 140/90 I10 Morbid obesity with body mass index (BMI) greater than or equal to 50 E66.01 CAD (coronary atherosclerotic disease) I25.10 Associated angina: without angina Coronary Disease-Associated Artery/Lesion type: [place] artery [place] vs. transplanted heart: [place] heart
[2021-11-09 17:23] LABS: Procalcitonin 0.06 ng/mL (0-0.5); Thyroid Stimulating Hormone 3.14 uIU/mL (0.27-4.20)
[2021-11-09 17:35] LABS: C Reactive Protein 28.2 mg/L (0.0-4.9); Iron 37 ug/dL (37-145)
[2021-11-09] MEDS: FUROsemide 40 mg Tablet PO (17:41)
[2021-11-09] MEDS: gabapentin 300 mg Capsule PO (17:41)
[2021-11-09] MEDS: metoprolol succinate ER (24 HR) 25 mg Tablet PO (17:41)
[2021-11-09] MEDS: potassium chloride ER 10 mEq Tablet PO (17:41)
[2021-11-09] MEDS: levoFLOXacin 500 mg Tablet PO (17:41)
[2021-11-09] MEDS: ferrous gluconate 324 mg Tablet PO (17:41)
[2021-11-09] MEDS: pantoprazole DR 40 mg Tablet PO (17:42)
--- NOTE | 2021-11-09 17:59 | ECG_ITS ---
[facility] Test Date: 2021-11-09 Pat Name: Dexter Mariscal Department: Room: Gender: Female Cardiac Nurse Practitioner: : 1955 Requested By: Mario Stephens Order Number: [id number] Jimmy MD: Kieran Sarah M.D. Measurements Intervals [place] Rate: 87 P: 73 DE: 192 QRS: 26 QRSD: 106 T: 69 QT: 381 QTc: 460 Interpretive Statements SINUS RHYTHM LOW QRS VOLTAGE IN PRECORDIAL LEADS [QRS DEFLECTION < 1.0 mV IN CHEST LEADS] NONSPECIFIC T-WAVE ABNORMALITY Compared to ECG 11/09/2021 14:34:36 No significant changes Electronically Signed On 11-09-2021 20:23:26 ENLISTED AIRCREW/AERIAL OBSERVER/GUNNER by Kieran Sarah M.D. [id number]
[2021-11-09 18:12] LABS: Percent Saturation 9.4 % (20-50); Total Iron Binding Capacity 390 mcg/dl; Unsaturated Iron Binding 353 ug/dL (112-347)
[2021-11-09 18:55] LABS: Add Urine Microscopic? NO; Charge for UA Resulting for Rev
[2021-11-09 18:57] LABS: Urine Appearance Clear (CLEAR); Urine Color Yellow (Yellow)
[2021-11-09 18:58] LABS: Bilirubin Urine Neg (Negative); Blood Urine Neg (Negative); Glucose Urine UA Norm (Normal); Ketones Urine Negative (Negative); Leukocyte Esterase Urine Negative (Negative); Nitrate Urine Negative (Negative); Protein Urine Neg (Negative); Specific Gravity, Urine 1.005 (1.005-1.030); Urobilinogen Urine Norm (Negative); pH Urine 7 (5-7)
[2021-11-09 19:02] LABS: Adenovirus Not Detected (NOT DETECT); Chlamydia Pneumoniae Not Detected (NOT DETECT); Coronavirus 229E,HKU1,NL63,OC4 Not Detected (NOT DETECT); Human Metapneumovirus Not Detected (NOT DETECT); Human Rhinovirus/Enterovirus Not Detected (NOT DETECT); Influenza A Not Detected (NOT DETECT); Influenza A H1 Not Detected (NOT DETECT); Influenza A H1-2009 Not Detected (NOT DETECT); Influenza A H3 Not Detected (NOT DETECT); Influenza B Not Detected (NOT DETECT); Mycoplasma Pneumoniae Not Detected (NOT DETECT); Parainfluenza Virus Type 1 Not Detected (NOT DETECT); Parainfluenza Virus Type 2 Not Detected (NOT DETECT); Parainfluenza Virus Type 3 Not Detected (NOT DETECT); Parainfluenza Virus Type 4 Not Detected (NOT DETECT); Respiratory Syncytial Virus A Not Detected (NOT DETECT); Respiratory Syncytial Virus B Not Detected (NOT DETECT); SARS-COV-2 Not Detected (NOT DETECT)
[2021-11-09] MEDS: budesonide 0.5 mg/2 mL Neb INHALATION (21:12)
[2021-11-09] MEDS: enoxaparin 40 mg/0.4 mL Syringe SUBCUT (21:41)
[2021-11-09] MEDS: amitriptyline 25 mg Tablet 100 MG PO (21:41)
[2021-11-10] VITALS (13 sets, daily range): BP systolic 111–144; BP diastolic 52–81; PULSE 88–108; RESP 15–23; TEMP 36.5–36.8; O2SAT 87–99
[2021-11-10] MEDS: ipratropium-albuterol 3 mL Neb INHALATION ×3 (03:04→15:11)
[2021-11-10 07:20] LABS: Basophils % 0.1 %; Hematocrit 36.2 % (37.0-47.0); Hemoglobin 10.8 g/dL (11.5-15.3); Lymphocytes # 0.7 10^3/uL (0.8-4.8); Lymphocytes % 8.1 %; Mean Corpuscular HGB Conc 29.8 g/dL (30.0-36.0); Mean Corpuscular Hemoglobin 28.1 pg (28.0-34.0); Monocytes # 0.2 10^3/uL (0.2-0.9); Monocytes % 1.8 %; Neutrophils # 7.29 10^3/uL (1.8-7.7); Neutrophils % 89.3 %; Nucleated Red Blood Cells % 0 %; Platelet Count 275 10^3/cmm (130-400); Red Blood Count 3.85 10^6/uL (4.1-5.3); Red Cell Distribution Width 16.4 % (12.1-15.1); White Blood Count 8.2 10^3/uL (4.0-10.0)
[2021-11-10 07:45] LABS: Alanine Aminotransferase 15 U/L (0-33); Albumin Level 3.5 g/dL (3.5-5.2); Alkaline Phosphatase 87 IU/L (35-105); Aspartate Amino Transferase 13 U/L (0-32); Blood Urea Nitrogen 8 mg/dL (8-23); Calcium 8.5 mg/dL (8.5-10.5); Carbon Dioxide 26 mmol/L (22-29); Chloride 103 mmol/L (98-107); Globulin 3.1 g/dL (1.3-4.6); Glomerular Filtration Rate 160.7 mL/min (90-130); Glucose 210 mg/dL (65-115); Osmolality Calculated 297 mOsm/kg (285-295); Sodium 141 mmol/L (136-145); Total Bilirubin 0.2 mg/dL (0.15-1.2); Total Protein 6.6 g/dL (6.6-8.7)
[2021-11-10 07:50] LABS: Estmated Average Glucose 154
[2021-11-10] MEDS: perflutren protein-a microsphr 0.22 mg/mL SDV 3 mL IV (08:06)
[2021-11-10] MEDS: metoprolol succinate ER (24 HR) 25 mg Tablet PO (08:13)
[2021-11-10] MEDS: gabapentin 300 mg Capsule PO (08:13)
[2021-11-10] MEDS: FUROsemide 40 mg Tablet PO (08:13)
[2021-11-10] MEDS: potassium chloride ER 10 mEq Tablet PO (08:14)
[2021-11-10] MEDS: folic acid 1 mg Tablet PO (08:14)
[2021-11-10] MEDS: amlodipine 10 mg Tablet PO (08:14)
[2021-11-10] MEDS: pantoprazole DR 40 mg Tablet PO (08:14)
[2021-11-10] MEDS: ferrous gluconate 324 mg Tablet PO (08:14)
[2021-11-10] MEDS: losartan 50 mg Tablet 100 MG PO (08:14)
[2021-11-10] MEDS: cefTRIAXone 1,000 MG in sodium chloride 0.9% (plus) 50 ML 100 MG IV (08:14)
[2021-11-10] MEDS: duloxetine 20 mg Capsule PO (08:14)
[2021-11-10] MEDS: levoFLOXacin 500 mg Tablet PO (08:14)
[2021-11-10 08:19] LABS: Chol HDL Ratio 4.68 mg/dL (0.0-4.40); Cholesterol 173 mg/dL (0-200); HDL Cholesterol 37 mg/dL (60-100); LDL Cholesterol Calculated 101 mg/dL (50-129); Triglycerides 174 mg/dL (0-150); VLDL Cholestrol Calculation 35 mg/dL (0-30)
[2021-11-10] MEDS: budesonide 0.5 mg/2 mL Neb INHALATION (09:58)
--- NOTE | 2021-11-10 10:19 | USCV_ITS ---
Dexter Mariscal Age: 66 Gender: F : 1955 Exam Date: 11/10/2021 11:04 Ordering Phys: William Whitney MD Technologist: NIKA [place] [facility] [place]: elevated D-Dimer. No hx DVT per patient. HISTORY: elevated D-Dimer. No hx DVT per patient. Morbid obesity. PROCEDURES: The venous duplex Doppler examination of both lower extremities was performed in the standard fashion. The following venous structures were evaluated: common femoral vein, profunda vein, proximal portion of the greater saphenous vein, superficial femoral vein, and the popliteal vein. FINDINGS: Normal 2-D Doppler and augmentation and compressibility throughout the lower extremity venous structures. Additional imaging through the proximal calf veins also reveals no thrombus. Limited evaluation of the greater saphenous vein is patent with no thrombus.. Complex cystic mass with low level echos and no vascularity measuring 3.4 x 2.8 cm in the left popliteal fossa. CONCLUSIONS No DVT bilateral lower extremities. Left popliteal fossa Mas's cyst. Dr. Alison Up DO (Electronically Signed) Final Date: 10 November 2021 12:05 S
--- NOTE | 2021-11-10 13:16 | P.DS_ITS ---
Discharge Providers Date of Admission: 11/09/21 16:56 Date of Discharge: November 10, 2021 Attending Provider at Admission: Denver Oliva MD Attending Provider at Discharge: William Whitney Primary Care Provider: Martha Pace MD Diagnoses at Discharge Discharge Diagnosis (1) Hypoxia: Status: Acute (2) COPD (chronic obstructive pulmonary disease): Status: Acute Qualifiers: COPD type: chronic bronchitis Chronic bronchitis type: simple Qualified Code(s): J41.0 - Simple chronic bronchitis (3) MARGARETH (obstructive sleep apnea): Status: Acute (4) Chronic respiratory failure: Status: Acute Qualifiers: Respiratory failure complication: hypoxia and hypercapnia Qualified Code(s): J96.11 - Chronic respiratory failure with hypoxia; J96.12 - Chronic respiratory failure with hypercapnia (5) Chest pain: Status: Acute (6) Benign essential hypertension with target blood pressure below 140/90: Status: Acute (7) Morbid obesity with body mass index (BMI) greater than or equal to 50: Status: Acute (8) CAD (coronary atherosclerotic disease): Status: Acute Qualifiers: Coronary Disease-Associated Artery/Lesion type: [place] artery [place] vs. transplanted heart: [place] heart Associated angina: without angina Qualified Code(s): I25.10 - Atherosclerotic heart disease of [place] coronary artery without angina pectoris Reason for Visit Reason for Visit: CHEST PAIN Hospital Course Hospital Course Pleasant 66-year-old lady with history of CAD, aortic valve sclerosis, psoriatic arthritis, COPD on chronic oxygen nightly and BiPAP nightly for MARGARETH as well, reports was told needs to also wear oxygen during the day, but has not been, presented to the hospital with dyspnea after episode of chest tightness lightheadedness for which to continue nitroglycerin tablets. Noted hypoxic at rest in ER, requiring 6 L of oxygen to maintain saturation 94%. Was tested for COVID-[address] angiogram negative for PE, with minimal bilateral atelectasis versus pneumonia. Afebrile, without leukocytosis. Empirically treated with Levaquin, azithromycin. Symptoms started after walking in cold weather. Received IV Solu-Medrol. With history of diastolic congestive heart failure, received IV diuretic. Additional supportive treatments with breathing treatments, inhaled steroid. Today she is feeling much better. Her discomfort has entirely resolved, and breathing feels back to her usual. She is requiring 3.5 L of oxygen by nasal cannula. She states she had been previously told she needs oxygen during the day as well. We are requesting for home O2 evaluation, although discussed with her this may not necessarily be her new baseline, and may prove after resolution of acute condition. She will complete short course of antibiotic for possible pneumonia. She is encouraged to continue with incentive spirometer due to no atelectasis. Will complete short course of prednisone. She denies chest pain or pressure. Troponin series not suggestive of acute [place]. Echocardiogram has been obtained as also planned by her head of operation and logistics on outpatient side. Given chest pain, history of CAD she is also referred for additional assessment by stress testing. She knows to seek medical attention immediately in case of lack of resolution of chest pain with nitroglycerin. She is asked to follow-up with her head of operation and logistics in office. She is started on low- dose aspirin due to known CAD, as well as atherosclerosis due to CAD with underlying psoriatic arthritis. Baseline cholesterol panel is obtained. She is asked if possible to avoid NSAIDs. Physical Exam Const: COMMON NORMALS: no acute distress, patient oriented x3 and alert GENERAL APPEARANCE: cooperative and comfortable NUTRITIONAL APPEARANCE: obese ORIENTATION/CONSCIOUSNESS: Yes awake HENMT: COMMON NORMALS: oropharynx normal Neck/C-Spine: COMMON NORMALS: no JVD Resp: COMMON NORMALS: normal respiratory effort and clear to auscultation bilaterally AUSCULTATION: clear to auscultation bilaterally Cardio: COMMON NORMALS: no JVD, regular rhythm, S1 normal heart sound present, S2 normal heart sound present and No murmurs present (Cardio) RHYTHM: regular rhythm HEART SOUNDS: S1 normal heart sound present and S2 normal heart sound present GI: COMMON NORMALS: Normal to inspection, nondistended, normoactive bowel sounds present, Soft to palpation and non-tender PALPATION: Yes Soft to palpation Extremity: COMMON NORMALS: no joint enlargement GENERAL: Yes edema (2+) Neuro: COMMON NORMALS: patient oriented x3 and moves all extremities SENSORIUM/ORIENTATION: Yes alert Skin: COMMON NORMALS: no rashes or lesions noted GENERAL SKIN EXAM: no rashes or lesions noted Discharge Data Data Completed and Pending: Completed Studies During Hospitalization Category Date Time Status CT angio chest PE protcl [id number] Urge nt Cat Scan 11/09/21 14:[address] head wo con* 7 0450 Urgent Cat Scan 11/09/21 11:58 Completed XR chest 1V jimena ble [id number] Urgent Exams 11/09/21 11:58 [place] [id number] Routin e Ultrasound 11/10/21 10:19 Completed Pending at discharge Category Date Time Status Blood Culture Sta t Lab 11/09/21 18:54 Results MRSA by PCR Routi ne Lab 11/09/21 17:12 Received CV. echo wo/w con trast [id number] Routin e Ultrasound 11/10/21 16:53 Taken Labs from last 24 hours 11/10/21 11/10/21 11/10/21 06:24 06:24 06:24 WBC RBC Hgb Hct MCV MCH MCHC RDW Plt Count MPV Neut % (Auto) Lymph % (Auto) [place] % (Auto) Eos % (Auto) Baso % (Auto) Neut # (Auto) Lymph # (Auto) [place] # (Auto) Eos # (Auto) Baso # (Auto) Nucleated RBC % (a uto) Nucleated RBCs # D-Dimer Sodium 141 Potassium 4.0 Chloride 103 Carbon Dioxide 26 Anion Gap 16.0 BUN 8 Creatinine 0.4 L GFR Calculation 160.7 H Glucose 210 H Estimat Average Gl ucose 154 Hemoglobin A1c 7.0 H Calculated Osmolal ity 297 H Calcium 8.5 Iron TIBC % Saturation Unsat Iron Binding Total Bilirubin 0.2 AST 13 ALT 15 Alkaline Phosphata se 87 Troponin T 120 Min [place] Delta Troponin T Troponin T Hi Sens 6Hr Troponin T Hi Sens 6Hr Delta C-Reactive Protein Total Protein 6.6 Albumin 3.5 Globulin 3.1 Triglycerides 174 H Cholesterol 173 LDL Cholesterol, C alc 101 Total VLDL Cholest [place] 35 H HDL Cholesterol 37 L Cholesterol/HDL Ra sae 4.68 H Procalcitonin TSH Urine Color Urine Appearance Urine pH Ur Specific Gravit y Urine Protein Urine Glucose (UA) Urine Ketones Urine Blood Urine Nitrate Urine Bilirubin Urine Urobilinogen Ur Leukocyte [place] Coronavirus 229E ( PCR) SARS-CoV-2 (PCR) 11/10/21 11/09/21 11/09/21 06:24 18:52 18:48 WBC 8.2 RBC 3.85 L Hgb 10.8 L Hct 36.2 L MCV 94.0 MCH 28.1 MCHC 29.8 L RDW 16.4 H Plt Count 275 MPV 11.0 H Neut % (Auto) 89.3 Lymph % (Auto) 8.1 [place] % (Auto) 1.8 Eos % (Auto) 0.0 Baso % (Auto) 0.1 Neut # (Auto) 7.29 Lymph # (Auto) 0.7 L [place] # (Auto) 0.2 Eos # (Auto) 0.0 Baso # (Auto) 0.0 Nucleated RBC % (a uto) 0 Nucleated RBCs # 0.0 D-Dimer Sodium Potassium Chloride Carbon Dioxide Anion Gap BUN Creatinine GFR Calculation Glucose Estimat Average Gl ucose Hemoglobin A1c Calculated Osmolal ity Calcium Iron TIBC % Saturation Unsat Iron Binding Total Bilirubin AST ALT Alkaline Phosphata se Troponin T 120 Min [place] Delta Troponin T Troponin T Hi Sens 6Hr 7.30 Troponin T Hi Sens 6Hr Delta -1.70 L C-Reactive Protein Total Protein Albumin Globulin Triglycerides Cholesterol LDL Cholesterol, C alc Total VLDL Cholest [place] HDL Cholesterol Cholesterol/HDL Ra sae Procalcitonin TSH Urine Color Yellow Urine Appearance Clear Urine pH 7 Ur Specific Gravit y 1.005 Urine Protein Neg Urine Glucose (UA) Norm Urine Ketones Negative Urine Blood Neg Urine Nitrate Negative Urine Bilirubin Neg Urine Urobilinogen Norm Ur Leukocyte [place] Negative Coronavirus 229E ( PCR) SARS-CoV-2 (PCR) 11/09/21 11/09/21 11/09/21 17:12 14:27 13:17 WBC RBC Hgb Hct MCV MCH MCHC RDW Plt Count MPV Neut % (Auto) Lymph % (Auto) [place] % (Auto) Eos % (Auto) Baso % (Auto) Neut # (Auto) Lymph # (Auto) [place] # (Auto) Eos # (Auto) Baso # (Auto) Nucleated RBC % (a uto) Nucleated RBCs # D-Dimer Sodium Potassium Chloride Carbon Dioxide Anion Gap BUN Creatinine GFR Calculation Glucose Estimat Average Gl ucose Hemoglobin A1c Calculated Osmolal ity Calcium Iron 37 TIBC 390 % Saturation 9.4 L Unsat Iron Binding 353 H Total Bilirubin AST ALT Alkaline Phosphata se Troponin T 120 Min [place] 8.97 Delta Troponin T -0.03 L Troponin T Hi Sens 6Hr Troponin T Hi Sens 6Hr Delta C-Reactive Protein 28.2 H Total Protein Albumin Globulin Triglycerides Cholesterol LDL Cholesterol, C alc Total VLDL Cholest [place] HDL Cholesterol Cholesterol/HDL Ra sae Procalcitonin 0.06 TSH 3.14 Urine Color Urine Appearance Urine pH Ur Specific Gravit y Urine Protein Urine Glucose (UA) Urine Ketones Urine Blood Urine Nitrate Urine Bilirubin Urine Urobilinogen Ur Leukocyte [place] Coronavirus 229E ( PCR) Not detected SARS-CoV-2 (PCR) Not detected 11/09/21 13:02 WBC RBC Hgb Hct MCV MCH MCHC RDW Plt Count MPV Neut % (Auto) Lymph % (Auto) [place] % (Auto) Eos % (Auto) Baso % (Auto) Neut # (Auto) Lymph # (Auto) [place] # (Auto) Eos # (Auto) Baso # (Auto) Nucleated RBC % (a uto) Nucleated RBCs # D-Dimer 3.68 H Sodium Potassium Chloride Carbon Dioxide Anion Gap BUN Creatinine GFR Calculation Glucose Estimat Average Gl ucose Hemoglobin A1c Calculated Osmolal ity Calcium Iron TIBC % Saturation Unsat Iron Binding Total Bilirubin AST ALT Alkaline Phosphata se Troponin T 120 Min [place] Delta Troponin T Troponin T Hi Sens 6Hr Troponin T Hi Sens 6Hr Delta C-Reactive Protein Total Protein Albumin Globulin Triglycerides Cholesterol LDL Cholesterol, C alc Total VLDL Cholest [place] HDL Cholesterol Cholesterol/HDL Ra sae Procalcitonin TSH Urine Color Urine Appearance Urine pH Ur Specific Gravit y Urine Protein Urine Glucose (UA) Urine Ketones Urine Blood Urine Nitrate Urine Bilirubin Urine Urobilinogen Ur Leukocyte [place] Coronavirus 229E ( PCR) SARS-CoV-2 (PCR) Vitals: Last Vital Signs Temp 97.7 F 11/10/21 11:45 Pulse 104 H 11/10/21 11:45 Resp 18 11/10/21 11:45 BP 113/52 11/10/21 11:45 Pulse Ox 92 11/10/21 11:45 Discharge Plan Discharge Patient Disposition: Home Condition: Stable Prescriptions: New levofloxacin 500 mg Tablet 500 mg PO DAILY@0600 Qty: 4 RF: 0 prednisone 20 mg tablet 20 mg PO DAILY 4 Days Qty: 4 RF: 0 aspirin 81 mg capsule 81 mg PO DAILY Qty: 30 RF: 0 atorvastatin 40 mg tablet 40 mg PO QPM Qty: 90 RF: 0 Continued folic acid 1 mg tablet 1 mg PO DAILY Qty: 90 RF: 3 amitriptyline 100 mg tablet 100 mg PO BEDTIME RF: 0 methotrexate sodium (PF) 25 mg/mL solution 20 mg IM .Q7days Qty: 10 RF: 1 Xeljanz 5 mg tablet 5 mg PO BID Qty: 60 RF: 3 triamcinolone acetonide 0.025 % cream 1 applic TOPICAL BID RF: 0 nitroglycerin [Nitrostat] 0.4 mg tablet, sublingual 0.4 mg SUBLINGUAL Q5M PRN (Reason: Chest Pain) RF: 0 prednisone 10 mg tablet See Rx Instructions PO .COMPLEX PRN (Reason: joint pain) Qty: 30 RF: 2 amlodipine 10 mg tablet 10 mg PO DAILY 90 Days Qty: 90 RF: 1 albuterol sulfate [Ventolin HFA] 90 mcg/actuation HFA aerosol inhaler 2 puff inhalation Q6H PRN (Reason: shortness of breath or wheezing) Qty: 8.5 RF: 5 duloxetine 20 mg capsule,delayed release(DR/EC) 20 mg PO DAILY 90 Days Qty: 90 RF: 1 fluticasone propion-salmeterol [Wixela Inhub] 250-50 mcg/dose blister with device 1 inh inhalation BID 30 Days Qty: 60 RF: 5 gabapentin 300 mg capsule See Rx Instructions .ROUTE .COMPLEX Qty: 60 RF: 5 ibuprofen 800 mg tablet 800 mg PO Q8H PRN (Reason: pain) Qty: 60 RF: 5 losartan 100 mg tablet 100 mg PO DAILY 90 Days Qty: 90 RF: 3 metoprolol succinate 25 mg tablet extended release 24 hr See Rx Instructions .ROUTE .COMPLEX Qty: 60 RF: 5 pantoprazole 40 mg tablet,delayed release (DR/EC) 40 mg PO BID 90 Days Qty: 180 RF: 1 potassium chloride 10 mEq capsule, extended release 10 meq PO BID 90 Days Qty: 180 RF: 2 Ambien 5 mg tablet 5 mg PO BEDTIME PRN (Reason: insomnia) RF: 0 Changed furosemide 40 mg tablet See Rx Instructions .ROUTE .COMPLEX 90 Days Qty: 180 RF: 1 Discharge Orders: Discharge Order (Routine); Ordered 11/10/21 Ordered By: William Whitney Other Ambulatory Orders: Sestamibi Stress Test Request (Routine) Timeframe: 2 Days Facility: [facility] - Location: Cardiac Diagnostic Laboratory Ordered By: William Whitney Referrals: Lo Mcdonough FNP [Nurse Practitioner] - 11/18/21 1:00 pm (After stress test) Martha Pace MD [Primary Care Provider] - 11/17/21 9:30 am Discharge Diet: Cardiac Discharge Activity: Increase activity as tolerated, Oxygen as instructed and Cpap/Bipap as instructed Patient Instructions: Furosemide (By mouth), Aspirin (By mouth), Atorvastatin (By mouth), Levofloxacin (By mouth), Heart Failure (GEN), Hypoxia (GEN), Atelectasis (GEN), Coronary Artery Disease in Women (GEN), Nuclear Stress Test (GEN), Opioid Safety, Using Oxygen at Home Activity Restrictions/Additional Instructions: Please continue incentive spirometer due to atelectasis in lower lungs. Due to possible pneumonia complete short course of Levaquin, but follow-up with your primary doctor for resolution of symptoms, or in case antibiotic course needs to be extended. Please increase your dose of Lasix to help stave off congestive heart failure symptoms. Increase to 60 mg in the morning, 40 mg in the evening. In case you are gaining more than 3 pounds in 2 days in weight, having more shortness of breath lying flat, more significant lower extremity edema, please take an extra dose of additional 20 mg (half tablet) in the morning. Contact your heart doctors office. Please follow-up with stress testing for additional assessment for underlying progression of coronary disease. Take nitroglycerin in case of chest pain, if no improvement, call 911. Please follow-up with your computer help desk specialist in office. Discussed results of echocardiogram and stress test. Discussed whether you need to continue on aspirin depending on test results. You are started on cholesterol medication as well to reduce risk of progression of atherosclerosis with known coronary disease and in the setting of psoriatic arthritis. Please follow-up with regards to this with your head of operation and logistics and primary doctor. Psoriatic arthritis increases your risk of coronary artery disease and cardiovascular events. As recommended, please continue oxygen during the day as well as at night. Continue BiPAP nightly as you have been. Consider avoiding ibuprofen if possible, as well as other NSAIDs. Avoid other medications that may cause kidney injury. Discharge Attestations Time Spent in Discharge Care*: greater than 30 min Quality Metrics Clinical Quality Measures During this hospital stay, did patient experience: None Coding Level of Care Code Acute Chg FW MI note Diagnoses Hypoxia R09.02 COPD (chronic obstructive pulmonary disease) J41.0 COPD type: chronic bronchitis Chronic bronchitis type: simple MARGARETH (obstructive sleep apnea) G47.33 Chronic respiratory failure J96.11; J96.12 Respiratory failure complication: hypoxia and hypercapnia Chest pain R07.9 Benign essential hypertension with target blood pressure below 140/90 I10 Morbid obesity with body mass index (BMI) greater than or equal to 50 E66.01 CAD (coronary atherosclerotic disease) I25.10 Coronary Disease-Associated Artery/Lesion type: [place] artery [place] vs. transplanted heart: [place] heart Associated angina: without angina
--- NOTE | 2021-11-10 16:53 | USCV_ITS ---
Dexter Mariscal Age: 66 Gender: F : 1955 Exam Date: 11/10/2021 07:35 Ordering Phys: Denver Oliva MD Technologist: Exam Location: [facility] [place] Indication: Congestive heart failure BP: 135 / 81 HR: 92 Rhythm: Sinus Technical Quality: Adequate MEASUREMENTS (Male / Female) Normal Values 2D ECHO LV Diastolic Diameter PLAX 5.2 cm 4.2 - 5.9 / 3.9 - 5.3 cm LV Systolic Diameter PLAX 3.5 cm IVS Diastolic Thickness 1.0 cm 0.6 - 1.0 / 0.6 - 0.9 cm IVS Systolic Thickness 1.9 cm LVPW Diastolic Thickness 1.3 cm 0.6 - 1.0 / 0.6 - 0.9 cm LVPW Systolic Thickness 1.5 cm LVOT Diameter 2.1 cm LV Ejection Fraction 2D Teich 62.0 % LV Ejection Fraction MOD 2C 64.7 % LV Ejection Fraction 2C AL 65.0 % LA Diameter 4.6 cm LA Width 4.8 cm LA Height 6.1 cm RA Width 5.4 cm RA Height 5.3 cm M-MODE LV Diastolic Diameter MM 5.7 cm 4.2 - 5.9 / 3.9 - 5.3 cm LV Systolic Diameter MM 3.9 cm LV Ejection Fraction MM Teich 57.8 % IVS Diastolic Thickness MM 1.6 cm 0.6 - 1.0 / 0.6 - 0.9 cm IVS Systolic Thickness MM 1.9 cm LVPW Diastolic Thickness MM 1.2 cm 0.6 - 1.0 / 0.6 - 0.9 cm LVPW Systolic Thickness MM 2.0 cm RV Diastolic Diameter MM 1.8 cm Aortic Annulus Diameter 4.2 cm LA Ao Ratio MM 1.1 MV E Point Septal Separation 1.2 cm DOPPLER AV Peak Velocity 239.0 cm/s LVOT Peak Velocity 118.0 cm/s AV Area Cont Eq vti 2.2 cm squared AV Area Cont Eq pk 1.7 cm squared MV Area PHT 5.0 cm squared Mitral E to A Ratio 0.8 MV E' Velocity 72.5 cm/s Mitral E to MV E' Ratio 15.6 Mitral E to LV E' Lateral Ratio 15.6 Mitral E to LV E' Septal Ratio 15.6 TR Peak Velocity 192.7 cm/s TR Peak Gradient 14.8 mmHg TV Peak E Velocity 97.0 cm/s Right Atrial Pressure 3.0 mmHg Pulmonary Artery Systolic Pressu 17.8 mmHg FINDINGS Left Ventricle Normal left ventricular cavity size and systolic function. Left ventricular ejection fraction is estimated at 65 %. No regional wall motion abnormalities. Normal diastolic function. Right Ventricle Normal right ventricular size and systolic function. Right ventricular systolic pressure 21 mmHg. Right Atrium Normal right atrial size. Left Atrium Normal left atrial size. Mitral Valve Structurally normal mitral valve. No mitral valve stenosis. Trace mitral valve regurgitation. Aortic Valve Aortic valve not well visualized. No aortic valve stenosis. No aortic valve regurgitation. Tricuspid Valve Structurally normal tricuspid valve. Pulmonic Valve Pulmonic valve not well visualized. Pericardium No pericardial effusion. Aorta CONCLUSIONS 1. This is a technically difficult study. Ultrasound enhancing agent Optison was used per protocol. 2. Normal left ventricular cavity size and systolic function. Left ventricular ejection fraction is estimated at 65 %. No regional wall motion abnormalities. Normal diastolic function. 3. Normal pulmonary artery pressure estimated 21 mmHg. 4. No significant valvular abnormality. 5. No significant change when compared to previous echocardiogram dated 01/12/2019. Camilla Roper MD (Electronically Signed) Final Date: 10 November 2021 18:18 S
== END 2021-11-10 16:00 | disposition home or self-care (01) ==
LOC: ER 18:46 → MEDSURG 19:30
PROVIDERS: Admitting Provider Student in an Organized Health Care Education/Training Program; Emergency Provider Emergency Medicine; PCP Family Medicine; Visit Provider Internal Medicine
DX: J41.0 Simple chronic bronchitis (principal); G47.33 Obstructive sleep apnea (adult) (pediatric); J96.11 Chronic respiratory failure with hypoxia; J96.12 Chronic respiratory failure with hypercapnia; R07.9 Chest pain, unspecified; E66.01 Morbid (severe) obesity due to excess calories; Z68.44 Body mass index [BMI] 60.0-69.9, adult; I25.10 Atherosclerotic heart disease of native coronary artery without angina pectoris; Z99.81 Dependence on supplemental oxygen; I11.0 Hypertensive heart disease with heart failure; I50.9 Heart failure, unspecified; J43.9 Emphysema, unspecified; R60.0 Localized edema
CPT/HCPCS: 36415; 36600; 70450; 71045; 71275; 80053; 80061; 81003; 82803; 83036; 83540; 83550; 83880; 84145; 84443; 84484; 85025; 85378; 86140; 86403; 87040; 87449; 87635; 87641; 93005; 93970; 94640; 94660; 96365; 96367; 96372; 96375; 99285; C8929; G0378; J0696; J1650; J2920; J2930; J3490; J7626; Q9956; Q9967

== ENCOUNTER 2022-01-15 10:00 | Outpatient (CLI) | payer MEDICARE, MEDICAID, SELFPAY ==
--- NOTE | 2022-01-15 10:15 | USCV_ITS ---
Dexter Mariscal Age: 66 Gender: F : 1955 Exam Date: 01/15/2022 10:52 Ordering Phys: Kieran Sarah MD ([email or web address] [email or web address]) Technologist: Francisco Lewis [place] [facility] [place]ication: carotid stenosis Risk Factors: Previous Vascular Surgery: Right Brachial BP: / Left Brachial BP: / Right Left Velocity (cm/s) Spectral Plaque Velocity (cm/s) Spectral Plaque Syst/Diast Broadening Syst/Diast Broadening 80.00/ 16.20 Prox CCA 114.70/ 22.10 77.60/ 25.10 Mid CCA 76.10 / 16.50 61.10/ 21.00 Distal CCA 84.90 / 14.30 48.70/ 15.30 Prox ICA 41.40 / 15.80 45.10/ 18.00 Mid ICA 51.90 / 17.70 41.10/ 15.50 Distal ICA 116.00/ 43.80 76.40 ECA 80.80 0.58 ICA/CCA 0.68 Antegrade Vertebral Antegrade 46.50/ 14.40 cm/s 56.20/ 23.20 cm/s Tri Subclavian Tri 127.9 127.9 0 0 FINDINGS Comparison: none available. No significant elevation of systolic or diastolic velocities. Waveforms are normal. No significant amount of calcified plaque or intimal thickening identified. Antegrade vertebral arteries. CONCLUSIONS Normal carotid ultrasound. Dr. Alison Up DO (Electronically Signed) Final Date: 15 January 2022 11:46 S
== END 2022-01-15 10:01 | disposition home or self-care (01) ==
LOC: RAD 10:06
PROVIDERS: PCP Family Medicine; Visit Provider Internal Medicine Cardiovascular Disease
DX: I77.9 Disorder of arteries and arterioles, unspecified (principal); R09.89 Other specified symptoms and signs involving the circulatory and respiratory systems
CPT/HCPCS: 93880

== ENCOUNTER → 2022-02-16 09:39 | Outpatient (BNVA) | payer MEDICARE, MEDICAID, SELFPAY | PROVIDERS: PCP Family Medicine; Visit Provider Family Medicine | DX: E11.9 Type 2 diabetes mellitus without complications (principal); I50.9 Heart failure, unspecified | CPT/HCPCS: 80053; 83036; 85025; 86140 ==

== ENCOUNTER → 2022-02-18 14:53 | Outpatient (BNVA) | payer MEDICARE, MEDICAID, SELFPAY | PROVIDERS: PCP Family Medicine; Visit Provider Internal Medicine Rheumatology | DX: L40.50 Arthropathic psoriasis, unspecified (principal); M17.0 Bilateral primary osteoarthritis of knee; Z79.899 Other long term (current) drug therapy; E66.01 Morbid (severe) obesity due to excess calories; Z68.43 Body mass index [BMI] 50.0-59.9, adult; Z71.89 Other specified counseling | CPT/HCPCS: 99214 ==

== ENCOUNTER → 2022-05-18 10:52 | Outpatient (BNVA) | payer MEDICARE, MEDICAID, SELFPAY | PROVIDERS: PCP Family Medicine; Visit Provider Family Medicine | DX: I10 Essential (primary) hypertension (principal); F51.01 Primary insomnia; E11.9 Type 2 diabetes mellitus without complications; F32.9 Major depressive disorder, single episode, unspecified; J41.0 Simple chronic bronchitis; R60.0 Localized edema; I35.8 Other nonrheumatic aortic valve disorders; I25.10 Atherosclerotic heart disease of native coronary artery without angina pectoris; K21.9 Gastro-esophageal reflux disease without esophagitis; B37.2 Candidiasis of skin and nail; M17.0 Bilateral primary osteoarthritis of knee; I50.9 Heart failure, unspecified; G89.4 Chronic pain syndrome | CPT/HCPCS: 80048; 83036 ==